=== PATIENT | male | born 1930 | race Caucasian/White ===

== ENCOUNTER → 2016-12-09 | Outpatient (CLI) | payer MEDICARE ==
[~2016-12-09] MED LIST: ALBU8I INH; ASPI325T PO; CARB25TA PO; CLON0.5T PO; FLUT50SP EACH NARE; IMOD2TAB PO; LEVA500T PO; LOVA40TA PO; METO50TA PO; NIFE1TAB85 PO; NITR0.4S SL; OMEP20TA39 PO; PACE200T4 PO; SERT25TA83 PO; TAMS0.4C67 PO; WARF5 PO; Z.0.OXYGENDME NC; [UNRECOGNIZED DRUG - OTHER] NEB
[2016-12-09 10:46] LABS: BLOOD GAS BASE EXCESS 0.9 mmol/L (-2-2); BLOOD GAS CARBOXYHEMOGLOBIN 1.5 % (0-4); BLOOD GAS HCO3 25 mmol/L (22-26); BLOOD GAS O2 HGB SATURATION 95 % (90-100); BLOOD GAS OXYGEN CONTENT 16.4 Vol % (12.0-20.0); BLOOD GAS PCO2 41 mmHg (38-42); BLOOD GAS PO2 90 mmHg (61-120); BLOOD GAS TOTAL HGB 12.3 G/DL (12.0-16.0); CRITICAL VALUE NO; DRAW SITE RT RADIAL; NUMBER OF ARTERIAL PUNCTURES 1; STAT NO; TEMP CORR TO 98.6; ULNAR PULSE PRESENT
--- NOTE | 2016-12-11 08:52 | RSPPFT ---
DATE OF PROCEDURE: 12/09/16 COMMENTS: Spirometry with FVC of 3.9 predicted 3.2, FEV1 of 2.4 predicted 2.5, FEV1/FVC ratio 63% predicted 73%. Post-bronchodilator FEV1 increases to 3.0. Lung volumes are essentially within predicted range except for the increased ERV, FRC and RV/TLC ratio. DLCO is 60% of predicted and 75% when corrected for alveolar volume. IMPRESSION: On the basis of the above, patient has an obstructive lung defect with responsiveness to acutely inhaled bronchodilator.
== END ==
LOC: HRSP 09:35
PROVIDERS: ATTEND Internal Medicine Pulmonary Disease
DX: R04.2 Hemoptysis (principal)
CPT/HCPCS: 36600; 82805; 94060; 94620; 94726; 94729

== ENCOUNTER → 2017-06-02 | Day surgery (SDC) | payer MEDICARE ==
[~2017-06-02] VITALS: Ht 172.7 cm; Wt 72.5 kg
[~2017-06-02] MED LIST changes: -ALBU8I INH; +ALBUAER3 INH; +AMIO200T PO; +ASPI-183 PO; +ASPI1TAB57 PO; -ASPI325T PO; -CARB25TA PO; +CARB25TA9 PO; +CHLORHEXIDINE GLUCONATE 2 % 1 PACK (2 CLOTHS) TOPICAL PRN; +DONE10TA7 PO; +EPINEPHrine HCL (1:1000) 30 MG/30 ML VIAL ONE; +FLUT1SPR16 NASAL; -FLUT50SP EACH NARE; +GLYC1TAB17 PO; -IMOD2TAB PO; +LACTATED RINGER'S 1000 ML IV PRN; -LEVA500T PO; +LIDOCAINE 1%/EPINEPHrine 1:100,000 SOLN 30 ML VIAL ONE; +LISI10TA3 PO; +LOPE-1 PO; +MEMA1TAB2 PO; +METOPROLOL TARTRATE 25 MG TAB PO PRN; +MINERAL OIL 10 ML VIAL ONE; -NIFE1TAB85 PO; +NIFE20 PO; -NITR0.4S SL; +NITR1SUB3 SL; -OMEP20TA39 PO; +OMEP20TA93 PO; +OMEP40CA2 PO; +OXYC1TAB35 PO; -PACE200T4 PO; +POVIDONE IODINE 5% (ANTISEPSIS KIT) 4 APPLICATIONS EACH NARE PRN; +SERT-129 PO; +SERT-132 PO; -SERT25TA83 PO; +SODIUM BICARBONATE 8.4% INJ 0 ML ONE; +SODIUM CHLORID 0.9% 500 ML IV PRN; +TAMS0.4C4 PO; -TAMS0.4C67 PO; +WARF-23 PO; -WARF5 PO; +ceFAZolin 2 GM PREMIX 50 ML IV SCH; +oxyCODONE/ACETAMINOPHEN 5 MG/325 MG TAB ONE
[2017-06-02 10:17] VITALS: PULSE 64
--- NOTE | 2017-06-02 10:30 | PD.OP ---
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 Patient and agreed to go ahead with surgery. Preoperative markings done in holding Patient brought to OR, anesthesia started, time out completed prep drape done All areas injected with dilute mix of lidocaine with epi and saline 1:1 mix First two specimens excised and suture marked superior, sent for frozen section Third lesion on the cheek was for permanent pathology only as it was too large for frozen section. Hemostasis completed with low power bovie. Full thickness skin graft harvested from left neck Graft sutured in place over the right brow, left uatsdin. Left cheek closed directly internal sutures only Donor site closed directly, internal sutures only Tie over dressings to the skin grafted sites, dermabond to the left cheek, and neck Frozen sections report - BCC with clear margins on both specimens. Patient stable, minimal blood loss less than 15 cc No complications, Edison Lopez MD Jun 02, 2017 10:30
[2017-06-02 11:00] VITALS: PULSE 60; TEMP 97.7
[2017-06-02 11:40] VITALS: BP 172/86; PULSE 63; RESP 14; O2SAT 97
== END | disposition home or self-care (01) ==
LOC: PHSDC 06:08
PROVIDERS: ATTEND Plastic Surgery
DX: C44.112 Basal cell carcinoma of skin of right eyelid, including canthus (principal); C44.119 Basal cell carcinoma of skin of left eyelid, including canthus; C44.319 Basal cell carcinoma of skin of other parts of face; I10 Essential (primary) hypertension
CPT/HCPCS: 00300; 11643; 11644; 15240; 15260; 88305; 88331; J0690; J3010; J7120; J0171

== ENCOUNTER 2018-02-19 10:48 | Inpatient (IN) ==
[2018-02-19 11:33] LABS: Baso % (Auto) 0.3 % (0.0-2.0); Eos # (Auto) 0.1 th/mm3 (0.0-0.4); Eos % (Auto) 0.6 % (0.0-4.0); Hematocrit 39.8 % (39.0-51.0); Hemoglobin 13.3 gm/dL (13.0-17.0); Lymph # (Auto) 1.6 th/mm3 (1.0-4.8); Lymph % (Auto) 17.6 % (9.0-44.0); Mean Corpuscular HGB Conc 33.3 % (32.0-36.0); Mean Corpuscular Hemoglobin 31.6 pg (27.0-34.0); Mean Platelet Volume 8.5 fL (7.0-11.0); Mono # (Auto) 0.6 th/mm3 (0.0-0.9); Neut # (Auto) 6.6 th/mm3 (1.8-7.7); Neut % (Auto) 74.5 % (16.0-70.0); Platelet Count 122 th/mm3 (150-450); Red Blood Count 4.19 mil/mm3 (4.50-5.90); White Blood Count 8.9 th/mm3 (4.0-11.0)
--- NOTE | 2018-02-19 11:34 | CT ---
EXAM DATE: 02/19/2018 11:25 AM EST AGE/SEX: 87 years / Male INDICATIONS: Seizure. CLINICAL DATA: This is the patient's initial encounter. Patient reports that signs and symptoms have been present for 1 day and indicates a pain score of 0/10. MEDICAL/SURGICAL HISTORY: Dementia. Parkinson's disease. None. RADIATION DOSE: 39.18 CTDI (mGy) COMPARISON: No prior exams available for comparison. TECHNIQUE: CT of the head without contrast. Using automated exposure control and adjustment of the mA and/or kV according to patient size, radiation dose was kept as low as reasonably achievable to ob tain optimal diagnostic quality images. DICOM format image data is available electronically for revi ew and comparison. FINDINGS: Cerebrum: There are 2 focal areas of hemorrhage seen in the left cerebral hemisphere measuring 3.3 c m in the superior posterior left frontal lobe and 4.5 cm in the posterior left temporal occipital reg ion. There is surrounding edema seen in these regions. There are some punctate hemorrhage seen at the superior left frontoparietal region. There is a 0.6 mm of [id number] midline shift. The basal cis terns are open. There is mass effect on the posterior aspect of the left lateral ventricle. The ventr icles otherwise appear grossly normal. There is some overall widening of the sulci. Posterior Fossa: The cerebellum and brainstem are intact. The 4th ventricle is midline. The cerebe llopontine angle is unremarkable. Extracranial: The visualized portion of the orbits is intact. There is ethmoid and maxillary sinus d isease with maxillary sinus disease being more prominent on the right. This increased density in the left nasal cavity likely from enlarged turbinates. Skull: The calvaria is intact. No evidence of skull fracture. CONCLUSION: 1. 2 focal areas of hemorrhage in the left cerebral hemisphere in the left frontal and left temporal parietal regions with surrounding mass effect. 2. Underlying atrophy. 3. Sinus disease. This information was relayed by telephone to . Electronically signed by: Joseph Arthur MD 02/19/2018 11:33 AM EST
[2018-02-19] MEDS ORDERED: levETIRAcetam 1000mg/100mL Inj 100 ML IV.SIG ONE (11:38)
--- NOTE | 2018-02-19 11:44 | ED ---
HPI General Chief complaint: Seizure Stated complaint: Poss Seizure Time Seen by Provider: 02/19/18 11:00 Source: patient Mode of arrival: ambulatory Limitations: no limitations History of Present Illness HPI narrative: 87yo M with PMH of Lewy body Parkinson, afib on coumadin, dementia presents to the ED for evaluation after a witnessed seizure today. As per EVAC, pt was in a wheelchair and his home health aid witnessed a generalized tonic clonic seizure that lasted a few seconds. Said pt never fell and she lowered him down from the wheelchair after. said she noticed that he was more confused last night and was pacing around the room but denies any fall yesterday. Said he saw his neurologist Dr. Keys yesterday and he noticed a decline in him. Related Data Home Medications Medication Instructions Recorded Confirmed carbidopa-levodopa 1 tab PO TID 01/21/18 02/19/18 clonazepam 0.5 mg PO HS PRN 01/21/18 02/19/18 glycopyrrolate 2 tab PO BID 01/21/18 02/19/18 memantine 10 mg PO DAILY 01/21/18 02/19/18 omeprazole 20 mg PO DAILY 01/21/18 02/19/18 quetiapine 25 mg PO HS 01/21/18 02/19/18 sertraline 100 mg PO DAILY 01/21/18 02/19/18 tamsulosin 0.4 mg PO DAILY 01/21/18 02/19/18 Previous Rx's Medication Instructions Recorded haloperidol lactate [Haldol] 2 mg IV.PUSH Q4H PRN ml 02/20/18 ipratropium-albuterol 1 amp NEB Q2HR NEB PRN ml 02/20/18 ondansetron HCl (PF) 4 mg IV.PUSH Q6H PRN ml 02/20/18 Allergies Allergy/AdvReac Type Severity Reaction Status Date / Time No Known Allergies Allergy Uncoded 04/25/13 03:26 Review of Systems ROS: all other systems reviewed are negative [facility] Family History Family History Mother Heart disease Father Emphysema of lung Social History Social History Substance History: No History of Abuse Second Hand Smoke Exposure: No Smoking Status: Former smoker How Often Do You Have a Drink Containing Alcohol: Unable to Obtain (History of daily alcohol consumption/vodka) Recent Travel in [facility] within the Last 8 Weeks: No Recent Out of Country Travel within the Last 8 Weeks: No Exam Narrative Exam Narrative: GENERAL: 87yo M not in distress. SKIN: Focused skin assessment warm/dry. HEAD: Atraumatic. Normocephalic. EYES: Pupils equal and round. No scleral icterus. No injection or drainage. ENT: No nasal bleeding or discharge. Mucous membranes pink and moist. NECK: Trachea midline. No JVD. CARDIOVASCULAR: Regular rate and rhythm. No murmur appreciated. RESPIRATORY: No accessory muscle use. Clear to auscultation. Breath sounds equal bilaterally. GASTROINTESTINAL: Abdomen soft, non-tender, nondistended. MUSCULOSKELETAL: No obvious deformities. No clubbing. No cyanosis. No edema. NEUROLOGICAL: Awake and alert. Has a left sided gaze. Follows commands but mumbles and nods and shakes head. RUE is weaker than LUE. Pt moves bilateral toes but unable to lift either leg. Unknown baseline. Course Initial Documented Vital Signs Pulse Rate 62 02/19/18 10:56 Respiratory Rate 18 02/19/18 10:56 Blood Pressure 184/84 H 02/19/18 10:56 Pulse Oximetry 96 02/19/18 10:56 Last Documented Vital Signs Temperature 98.7 F 02/20/18 20:00 Pulse Rate 99 H 02/21/18 12:00 Respiratory Rate 26 H 02/21/18 12:00 Blood Pressure 176/93 H 02/21/18 10:00 Pulse Oximetry 96 02/21/18 12:00 Critical Care Time Critical Care Time: Yes Total Critical Care Time: 50 Attestation: Aggregate critical care time was 50 minutes. Time to perform other separately billable procedures was not included in the critical care time. My time did not include minutes spent treating any other patients simultaneously or on activities that did not directly contribute to the patient's treatment. The services I provided to this patient were to treat and/or prevent clinically significant deterioration that could result in: cardiovascular collapse or . I provided critical care services requiring my management, as noted below: Chart data review, documentation time, medication orders and management, vital sign assessments/reviewing monitor data, ordering and reviewing lab tests, ordering and interpreting/reviewing x-rays and diagnostic studies, care of the patient and discussion of the patient with the admitting physicians. Medical Decision Making MDM Narrative Medical decision making narrative: 87yo M here for evaluation of seizure. Denies any trauma. Pt has been more confused since last night. CT brain showed 2 focal areas of hemorrhage in the left cerebral hemisphere in the left frontal and left temporal parietal regions with surrounding mass effect. Underlying atrophy. I discussed with neurosurgeon Dr. Warren and he came to evaluate the patient. Said it is nonsurgical but since it is 2 focal areas, would consult neurology. Labs reviewed, no leukocytosis. H/H normal. BMP unremarkable. CXR negative. INR therapeutic at 2.5. However, pt has an acute intracranial hemorrhage so ordered Vitamin K and K Centra. Pt is also on nicardipine drip since BP was elevated at 184/84. Pt is a DNR. Discussed with Dr. Mullen and accepted to his service. Medical Screen Exam Complete: Yes Emergency Medical Condition: Yes Differential Diagnosis Differential Diagnosis: ICH vs. CVA Lab Data Result diagrams: 02/20/18 05:29 02/20/18 05:29 Lab Results 02/19/18 02/19/18 02/19/18 Range/Units 11:10 11:10 11:10 WBC 8.9 (4.0-11.0) th/mm3 RBC 4.19 L (4.50-5.90) mil/mm3 Hgb 13.3 (13.0-17.0) gm/dL Hct 39.8 (39.0-51.0) % MCV 95.0 (80.0-100.0) fL MCH 31.6 (27.0-34.0) pg MCHC 33.3 (32.0-36.0) % RDW 14.0 (11.6-17.2) % Plt Count 122 L (150-450) th/mm3 MPV 8.5 (7.0-11.0) fL Neut % (Auto) 74.5 H (16.0-70.0) % Lymph % (Auto) 17.6 (9.0-44.0) % Price % (Auto) 7.0 (0.0-8.0) % Eos % (Auto) 0.6 (0.0-4.0) % Baso % (Auto) 0.3 (0.0-2.0) % Neut # (Auto) 6.6 (1.8-7.7) th/mm3 Lymph # (Auto) 1.6 (1.0-4.8) th/mm3 Price # (Auto) 0.6 (0.0-0.9) th/mm3 Eos # (Auto) 0.1 (0.0-0.4) th/mm3 Baso # (Auto) 0.0 (0.0-0.2) th/mm3 WBC Differential . Differential Comment Auto diff final PT 25.0 H (9.8-11.6) sec INR 2.5 Ratio APTT 32.4 H (23.4-31.7) sec Sodium 143 (136-145) meq/L Potassium 3.5 (3.5-5.1) meq/L Chloride 108 H (98-107) meq/L Carbon Dioxide 27.8 (21.0-32.0) meq/L Anion Gap 7 (5-15) meq/L BUN 13 (7-18) mg/dL Creatinine 0.90 (0.60-1.30) mg/dL Estimated GFR 80 L (>89) mL/min Random Glucose 112 H (74-106) mg/dL Calcium 7.7 L (8.5-10.1) mg/dL Magnesium 2.2 (1.5-2.5) mg/dL Total Bilirubin 0.8 (0.2-1.0) mg/dL AST 15 (15-37) U/L ALT 9 L (12-78) U/L Alkaline Phosphatase 97 (45-117) U/L Total Protein 6.5 (6.4-8.2) g/dL Albumin 3.4 (3.4-5.0) g/dL Urine Color (Yellw/Straw) Urine Clarity (Clear) Urine pH (5.0-8.5) Ur Specific Bellflower (1.002-1.035) Urine Protein (Neg-Trace) mg/dL Urine Glucose (UA) (Negative) mg/dL Urine Ketones (Negative) mg/dL Urine Occult Blood (Negative) Urine Nitrate (Negative) Urine Bilirubin (Negative) Urine Urobilinogen (Less than 2) mg/dL Ur Leukocyte Esterase (Negative) Urine RBC (0-3) /hpf Urine WBC (0-5) /hpf Urine Bacteria (None) /hpf Urine Mucus (Occasional) /lpf Micro UA Comment Ur Microscopic Review Urine Culture Comments Nasal Screen MRSA (PCR) (Negative) Blood Type Blood Type Recheck Blood Bank Comment 02/19/18 02/19/18 02/19/18 Range/Units 12:55 13:54 14:44 WBC (4.0-11.0) th/mm3 RBC (4.50-5.90) mil/mm3 Hgb (13.0-17.0) gm/dL Hct (39.0-51.0) % MCV (80.0-100.0) fL MCH (27.0-34.0) pg MCHC (32.0-36.0) % RDW (11.6-17.2) % Plt Count (150-450) th/mm3 MPV (7.0-11.0) fL Neut % (Auto) (16.0-70.0) % Lymph % (Auto) (9.0-44.0) % Price % (Auto) (0.0-8.0) % Eos % (Auto) (0.0-4.0) % Baso % (Auto) (0.0-2.0) % Neut # (Auto) (1.8-7.7) th/mm3 Lymph # (Auto) (1.0-4.8) th/mm3 Price # (Auto) (0.0-0.9) th/mm3 Eos # (Auto) (0.0-0.4) th/mm3 Baso # (Auto) (0.0-0.2) th/mm3 WBC Differential Differential Comment PT (9.8-11.6) sec INR Ratio APTT (23.4-31.7) sec Sodium (136-145) meq/L Potassium (3.5-5.1) meq/L Chloride (98-107) meq/L Carbon Dioxide (21.0-32.0) meq/L Anion Gap (5-15) meq/L BUN (7-18) mg/dL Creatinine (0.60-1.30) mg/dL Estimated GFR (>89) mL/min Random Glucose (74-106) mg/dL Calcium (8.5-10.1) mg/dL Magnesium (1.5-2.5) mg/dL Total Bilirubin (0.2-1.0) mg/dL AST (15-37) U/L ALT (12-78) U/L Alkaline Phosphatase (45-117) U/L Total Protein (6.4-8.2) g/dL Albumin (3.4-5.0) g/dL Urine Color Yellow (Yellw/Straw) Urine Clarity Clear (Clear) Urine pH 7.0 (5.0-8.5) Ur Specific Bellflower 1.012 (1.002-1.035) Urine Protein Negative (Neg-Trace) mg/dL Urine Glucose (UA) Negative (Negative) mg/dL Urine Ketones Negative (Negative) mg/dL Urine Occult Blood Negative (Negative) Urine Nitrate Negative (Negative) Urine Bilirubin Negative (Negative) Urine Urobilinogen 2.0 H (Less than 2) mg/dL Ur Leukocyte Esterase Negative (Negative) Urine RBC 2 (0-3) /hpf Urine WBC 1 (0-5) /hpf Urine Bacteria Rare H (None) /hpf Urine Mucus Few H (Occasional) /lpf Micro UA Comment Cath-culture ind Ur Microscopic Review Not Reportable Urine Culture Comments Cath-cult indicated Nasal Screen MRSA (PCR) Not detected (Negative) Blood Type A Positive Blood Type Recheck Required Blood Bank Comment 02/20/18 02/20/18 02/20/18 Range/Units 05:29 05:29 05:29 WBC 11.5 H (4.0-11.0) th/mm3 RBC 4.15 L (4.50-5.90) mil/mm3 Hgb 13.0 (13.0-17.0) gm/dL Hct 38.5 L (39.0-51.0) % MCV 93.0 (80.0-100.0) fL MCH 31.5 (27.0-34.0) pg MCHC 33.8 (32.0-36.0) % RDW 13.8 (11.6-17.2) % Plt Count 131 L (150-450) th/mm3 MPV 8.9 (7.0-11.0) fL Neut % (Auto) 76.2 H (16.0-70.0) % Lymph % (Auto) 15.3 (9.0-44.0) % Price % (Auto) 8.3 H (0.0-8.0) % Eos % (Auto) 0.0 (0.0-4.0) % Baso % (Auto) 0.2 (0.0-2.0) % Neut # (Auto) 8.7 H (1.8-7.7) th/mm3 Lymph # (Auto) 1.8 (1.0-4.8) th/mm3 Price # (Auto) 1.0 H (0.0-0.9) th/mm3 Eos # (Auto) 0.0 (0.0-0.4) th/mm3 Baso # (Auto) 0.0 (0.0-0.2) th/mm3 WBC Differential . Differential Comment Auto diff final PT 11.4 D (9.8-11.6) sec INR 1.1 Ratio APTT (23.4-31.7) sec Sodium 142 (136-145) meq/L Potassium 3.3 L (3.5-5.1) meq/L Chloride 110 H (98-107) meq/L Carbon Dioxide 22.8 (21.0-32.0) meq/L Anion Gap 9 (5-15) meq/L BUN 15 (7-18) mg/dL Creatinine 0.78 (0.60-1.30) mg/dL Estimated GFR Greater than 89 (>89) mL/min Random Glucose 95 (74-106) mg/dL Calcium 7.9 L (8.5-10.1) mg/dL Magnesium (1.5-2.5) mg/dL Total Bilirubin 1.5 H (0.2-1.0) mg/dL AST 15 (15-37) U/L ALT 15 (12-78) U/L Alkaline Phosphatase 102 (45-117) U/L Total Protein 6.4 (6.4-8.2) g/dL Albumin 3.5 (3.4-5.0) g/dL Urine Color (Yellw/Straw) Urine Clarity (Clear) Urine pH (5.0-8.5) Ur Specific [place]flower (1.002-1.035) Urine Protein (Neg-Trace) mg/dL Urine Glucose (UA) (Negative) mg/dL Urine Ketones (Negative) mg/dL Urine Occult Blood (Negative) Urine Nitrate (Negative) Urine Bilirubin (Negative) Urine Urobilinogen (Less than 2) mg/dL Ur Leukocyte Esterase (Negative) Urine RBC (0-3) /hpf Urine WBC (0-5) /hpf Urine Bacteria (None) /hpf Urine Mucus (Occasional) /lpf Micro UA Comment Ur Microscopic Review Urine Culture Comments Nasal Screen MRSA (PCR) (Negative) Blood Type Blood Type Recheck Blood Bank Comment Imaging Data Radiologist's impression: Head CT 02/19/18 11:01 CONCLUSION: 1. 2 focal areas of hemorrhage in the left cerebral hemisphere in the left frontal and left temporal parietal regions with surrounding mass effect. 2. Underlying atrophy. 3. Sinus disease. This information was relayed by telephone to . ECG Data EKG Prior to Arrival: No Attestation: I personally reviewed and interpreted this ECG as follows: Interpretation: NSR 60bpm. LAD> Mild ST depression V5, V6. No significant ST elevation. Discharge Plan Discharge Disposition Patient Disposition: 30 Still Patient Discharge Condition Condition: Fair Discharge Order Discharge Orders: Discharge Order (Routine); Ordered 02/20/18 Ordered By: Simon Pate Discharge Details Anticipated Discharge Date: 02/21/18 Diagnosis: Intracranial hemorrhage Physicians Team ED Provider: Karey Belcher Primary Care Provider: Regi Ng Attending Provider: J Luis Mullen Other Providers: Waleska Villeda ; Mayur Warren ; Tino Bustillos Status ED Status: Left Department Discharge Information Discharge Date/Time: 02/19/18 13:56
[2018-02-19 11:56] LABS: Alanine Aminotransferase 9 U/L (12-78); Albumin 3.4 g/dL (3.4-5.0); Anion Gap 7 meq/L (5-15); Aspartate Aminotransferase 15 U/L (15-37); Blood Urea Nitrogen 13 mg/dL (7-18); Calcium 7.7 mg/dL (8.5-10.1); Carbon Dioxide 27.8 meq/L (21.0-32.0); Chloride 108 meq/L (98-107); Glomerular Filtration Rate 80 mL/min (>89); Glucose,Random 112 mg/dL (74-106); Magnesium 2.2 mg/dL (1.5-2.5); Potassium 3.5 meq/L (3.5-5.1); Sodium 143 meq/L (136-145)
[2018-02-19] MEDS: niCARdipine Inj 25 MG in Sodium Chlor 0.9% Inj 240 ML IV.CONT PRN ×3 (11:56→23:21)
[2018-02-19 11:58] LABS: Alkaline Phosphatase 97 U/L (45-117); Total Protein 6.5 g/dL (6.4-8.2)
[2018-02-19 12:08] LABS: Activated Partial Thrombo Time 32.4 sec (23.4-31.7); INR 2.5 Ratio
[2018-02-19] MEDS ORDERED: Phytonadione Inj 10 MG in Sodium Chlor 0.9% Inj 50 ML IV.SIG ONE (12:43)
[2018-02-19] MEDS ORDERED: Prothrombin Complex Conc Inj 2,000 UNIT in Syringe/Bag 1 EACH IV.SIG ONE (12:43)
[2018-02-19] MEDS ORDERED: Bisacodyl 10 MG Supp RECTAL PRN (13:00)
--- NOTE | 2018-02-19 13:15 | P.CONNS ---
History of Present Illness Primary Care Provider: Regi Ng MD Chief Complaint: confusion History of Present Illness: 87yoM DNR/DNI with Parkinson's Disease (patient of Dr. Spence), on coumadin for a fib, found to be confused and aphasic today by and caregiver. Imaging shows left frontal and parietal Intraparenchymal hemorrhages, independent and not confluent. INR 2.5, no history of trauma. No intercurrent illness or history of fever. Patient is aphasic but follows commands x 4, can agree to his name but not name or repeat it, with a left gaze preference. [facility] - History History Provided By: Patient - Medical History Medical History: Medical History (Last Updated 02/19/18 @ 12:12 by Aakash Madrid RN) Atrial fibrillation Dementia Parkinson disease - Surgical History Surgical History: Surgical History (Last Updated 02/19/18 @ 12:12 by Aakash Madrid RN) H/O heart artery stent Hx of cholecystectomy - Tobacco History Second Hand Smoke Exposure: No Smoking Status: Former smoker - Alcohol History How Often Do You Have a Drink Containing Alcohol: Never - Substance Use History Substance History: No History of Abuse - Travel History Recent Travel in the [place] Within the Last 8 Weeks: No Recent Travel Out of the Country Within the Last 8 Weeks: No - Immunization History Tetanus Immunization: <5 Years Medications and Allergies Active Medications: Active Medications Al Hydroxide/Mg Hydroxide (Milk Of Madi Yusuf) 30 ml PO Q12H PRN PRN Reason: Mild Constipation Albuterol (Duoneb Neb (Prn)) 1 ampul NEB Q2HR NEB PRN PRN Reason: WHEEZING Bisacodyl (Dulcolax Supp) 10 mg RECTAL DAILY PRN PRN Reason: SEVERE CONSITIPATION Chlorhexidine Gluconate (Chlorhexidine 2% Cloth) 3 pack TOPICAL DAILY@0400 EVARISTO Stop: 02/25/18 03:59 Chlorhexidine Gluconate (Chlorhexidine 2% Cloth) 3 pack TOPICAL DAILY@0400 PRN PRN Reason: Extra cloth needed Stop: 02/25/18 03:59 Famotidine (Pepcid Pf Inj) 20 mg IV.PUSH Q12HR EVARISTO Nicardipine HCl 25 mg/ Sodium (Chloride) 250 mls @ 50 mls/hr IV.CONT TITRATE PRN; Protocol PRN Reason: Per Protocol Last Titration: 02/19/18 12:25 Dose: 5 mg/hr, 50 mls/hr Phytonadione 10 mg/ Sodium (Chloride) 51 mls @ 102 mls/hr IV.SIG ONCE ONE Stop: 02/19/18 13:12 Sodium Chloride (Ns Inj) 1,000 mls @ 84 mls/hr IV.CONT .[id number] EVARISTO Ondansetron HCl (Zofran Inj) 4 mg IV.PUSH Q6H PRN PRN Reason: NAUSEA OR VOMITING Sennosides (Senokot) 17.2 mg PO Q12H PRN PRN Reason: Moderate Constipation Sodium Chloride (Ns Flush) 2 ml IV.FLUSH BID EVARISTO Sodium Chloride (Ns Flush) 2 ml IV.FLUSH PRN PRN PRN Reason: FLUSH AFTER USING IV ACCESS Allergies Allergy/AdvReac Type Severity Reaction Status Date / Time No Known Allergies Allergy Uncoded 04/25/13 03:26 Home Medications Medication Instructions Recorded Confirmed Type aspirin 81 mg PO DAILY 01/21/18 01/21/18 History carbidopa-levodopa 1 tab PO TID 01/21/18 01/21/18 History clonazepam 0.5 mg PO HS PRN 01/21/18 01/21/18 History donepezil 10 mg PO DAILY 01/21/18 01/21/18 History glycopyrrolate 2 tab PO BID 01/21/18 01/21/18 History lisinopril 10 mg PO BID 01/21/18 01/21/18 History lovastatin 40 mg PO DAILY 01/21/18 01/21/18 History memantine 10 mg PO BID 01/21/18 01/21/18 History metoprolol tartrate 25 mg PO BID 01/21/18 01/21/18 History omeprazole 20 mg PO DAILY 01/21/18 01/21/18 History quetiapine 25 mg PO HS 01/21/18 01/21/18 History sertraline 100 mg PO DAILY 01/21/18 01/21/18 History tamsulosin 0.4 mg PO DAILY 01/21/18 01/21/18 History warfarin See Label Instructions .ROUTE 01/21/18 01/21/18 History .COMPLEX warfarin See Label Instructions .ROUTE 01/21/18 01/21/18 History .COMPLEX Exam Vital signs: Vital Signs 02/19/18 10:56 02/19/18 11:03 02/19/18 12:00 Temperature 98.2 F Pulse Rate 62 62 Respiratory Rate 18 16 Blood Pressure 184/84 H 175/77 H Pulse Oximetry 96 96 02/19/18 12:01 02/19/18 12:09 Temperature Pulse Rate 63 Respiratory Rate 16 19 Blood Pressure 129/58 L Pulse Oximetry 97 Intake & Output 02/18/18 02/19/18 02/19/18 18:59 06:59 18:59 Intake Total 100 / 100 Balance 100 / 100 Weight 83.915 kg Intake: IV 100 / 100 Keppra 1000 mg/100 mL Premix 100 / 100 100 ML @ 400 mls/hr IV.SIG ONCE ONE Rx#:[id number] Narrative: Left gaze preference, perrl Answers yes to his name but cannot produce language (name or repeat) Follows commands x 4 Neglect on the right but able to wiggle both thumbs Results - Laboratory Findings CBC and BMP: 02/19/18 11:10 02/19/18 11:10 Abnormal lab findings: Abnormal Labs 02/19/18 02/19/18 02/19/18 11:10 11:10 11:10 RBC 4.19 L Plt Count 122 L Neut % (Auto) 74.5 H PT 25.0 H APTT 32.4 H Chloride 108 H Estimated GFR 80 L Random Glucose 112 H Calcium 7.7 L ALT 9 L Assessment and Plan - Plan 87yoM with 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 Defer further management to neurology and ISC re: etiology (?embolic w/ afib, echo?). Reverse INR (consider Kcentra, Vit K) Should patient decline, patient's family is not interested in aggressive surgical intervention.
[2018-02-19 13:28] LABS: Bacteria,Urine Rare /hpf; Bilirubin,Urine Negative (Negative); Clarity,Urine Clear (Clear); Color,Urine Yellow (Yellw/Straw); Glucose,Urine (UA) Negative (Negative); Leukocyte Esterase,Urine Negative (Negative); Mucus,Urine Few /lpf (Occasional); Nitrite,Urine Negative (Negative); Specific Gravity,Urine 1.012 (1.002-1.035)
--- NOTE | 2018-02-19 13:28 | P.HPCC ---
History of Present Illness Service: critical care medicine Primary Care Physician: Regi Ng MD Chief Complaint: Altered mental status History of Present Illness: 87-year-old male with a medical history significant for Lewy body dementia/ Parkinson's, A. fib on Coumadin who reportedly developed worsening neurologic status since last night and this morning could not speak and could not feed himself and developed a loss of speech with subsequent question of witnessed seizure by his caregiver while in a wheelchair. He never fell and hit his head per family. Patient was brought to the ER and a head CT revealed 2 areas of intraparenchymal hemorrhage in the left cerebral hemisphere. Patient was evaluated by neurology Dr. Warren who did not feel patient needed any neurosurgical intervention. He was also hypertensive on arrival and was started on a Cardene drip. Patient was accepted for admission by critical care medicine service. When I evaluated the patient in the ER he was laying in the ER stretcher appeared comfortable in no acute distress. He was actually following commands moving both sides of the slightly less on the right. He was nonverbal and could not speak. History was obtained by reviewing records and discussion with the ER physician, neurosurgery as well as patient's and caregiver at bedside. Patient had been started on a nicardipine infusion for hypertension. Patient's does not want aggressive measures including intubation or CPR and wishes to keep him as a DNR status however does want to continue medical care including managing blood pressure and admitting to the ICU at this time. Inpatient Certification: I certify that the inpatient services were ordered in accordance with Medicare regulations governing the order. This includes certification that hospital inpatient services are reasonable and necessary and in the case of services not specified as inpatient-only under 42 CFR 419.22(n), that they are appropriately provided as inpatient services in accordance to with the 2-midnight benchmark under 43 CFR 412.3(e) Estimated Total Length of Stay (Days): 5 Plans for Post Hospital Care: Not yet determined Review of Systems unobtainable due to mental status PMFSH - History History Provided By: Patient - Medical History Medical History: Medical History (Last Updated 02/19/18 @ 12:12 by Aakash Madrid RN) Atrial fibrillation Dementia Parkinson disease - Surgical History Surgical History: Surgical History (Last Updated 02/19/18 @ 12:12 by Aakash Madrid RN) H/O heart artery stent Hx of cholecystectomy - Tobacco History Second Hand Smoke Exposure: No Smoking Status: Former smoker - Alcohol History How Often Do You Have a Drink Containing Alcohol: Never - Substance Use History Substance History: No History of Abuse - Travel History Recent Travel in the [place] Within the Last 8 Weeks: No Recent Travel Out of the Country Within the Last 8 Weeks: No - Immunization History Tetanus Immunization: <5 Years Medications and Allergies Active Medications: Active Medications Al Hydroxide/Mg Hydroxide (Milk Of Magnlauren Liq) 30 ml PO Q12H PRN PRN Reason: Mild Constipation Albuterol (Duoneb Neb (Prn)) 1 ampul NEB Q2HR NEB PRN PRN Reason: WHEEZING Bisacodyl (Dulcolax Supp) 10 mg RECTAL DAILY PRN PRN Reason: SEVERE CONSITIPATION Chlorhexidine Gluconate (Chlorhexidine 2% Cloth) 3 pack TOPICAL DAILY@0400 EVARISTO Stop: 02/25/18 03:59 Chlorhexidine Gluconate (Chlorhexidine 2% Cloth) 3 pack TOPICAL DAILY@0400 PRN PRN Reason: Extra cloth needed Stop: 02/25/18 03:59 Famotidine (Pepcid Pf Inj) 20 mg IV.PUSH Q12HR EVARISTO Nicardipine HCl 25 mg/ Sodium (Chloride) 250 mls @ 50 mls/hr IV.CONT TITRATE PRN; Protocol PRN Reason: Per Protocol Last Titration: 02/19/18 12:25 Dose: 5 mg/hr, 50 mls/hr Sodium Chloride (Ns Inj) 1,000 mls @ 84 mls/hr IV.CONT .[id number] EVARISTO Ondansetron HCl (Zofran Inj) 4 mg IV.PUSH Q6H PRN PRN Reason: NAUSEA OR VOMITING Sennosides (Senokot) 17.2 mg PO Q12H PRN PRN Reason: Moderate Constipation Sodium Chloride (Ns Flush) 2 ml IV.FLUSH BID EVARISTO Sodium Chloride (Ns Flush) 2 ml IV.FLUSH PRN PRN PRN Reason: FLUSH AFTER USING IV ACCESS Allergies Allergy/AdvReac Type Severity Reaction Status Date / Time No Known Allergies Allergy Uncoded 04/25/13 03:26 Home Medications Medication Instructions Recorded Confirmed Type aspirin 81 mg PO DAILY 01/21/18 01/21/18 History carbidopa-levodopa 1 tab PO TID 01/21/18 01/21/18 History clonazepam 0.5 mg PO HS PRN 01/21/18 01/21/18 History donepezil 10 mg PO DAILY 01/21/18 01/21/18 History glycopyrrolate 2 tab PO BID 01/21/18 01/21/18 History lisinopril 10 mg PO BID 01/21/18 01/21/18 History lovastatin 40 mg PO DAILY 01/21/18 01/21/18 History memantine 10 mg PO BID 01/21/18 01/21/18 History metoprolol tartrate 25 mg PO BID 01/21/18 01/21/18 History omeprazole 20 mg PO DAILY 01/21/18 01/21/18 History quetiapine 25 mg PO HS 01/21/18 01/21/18 History sertraline 100 mg PO DAILY 01/21/18 01/21/18 History tamsulosin 0.4 mg PO DAILY 01/21/18 01/21/18 History warfarin See Label Instructions .ROUTE 01/21/18 01/21/18 History .COMPLEX warfarin See Label Instructions .ROUTE 01/21/18 01/21/18 History .COMPLEX Results - Labs CBC & Chem 7: 02/19/18 11:10 02/19/18 11:10 Labs: Short CBC 02/19/18 Range/Units 11:10 WBC 8.9 (4.0-11.0) th/mm3 Hgb 13.3 (13.0-17.0) gm/dL Hct 39.8 (39.0-51.0) % Plt Count 122 L (150-450) th/mm3 BMP 02/19/18 11:10 Sodium 143 Potassium 3.5 Chloride 108 H Carbon Dioxide 27.8 BUN 13 Creatinine 0.90 Calcium 7.7 L Liver Function 02/19/18 Range/Units 11:10 Total Bilirubin 0.8 (0.2-1.0) mg/dL AST 15 (15-37) U/L ALT 9 L (12-78) U/L Alkaline Phosphatase 97 (45-117) U/L Albumin 3.4 (3.4-5.0) g/dL - Imaging Impressions Head CT 02/19/18 11:01 CONCLUSION: 1. 2 focal areas of hemorrhage in the left cerebral hemisphere in the left frontal and left temporal parietal regions with surrounding mass effect. 2. Underlying atrophy. 3. Sinus disease. This information was relayed by telephone to . Exam Vital signs: Vital Signs 02/19/18 10:56 02/19/18 11:03 02/19/18 12:00 Temperature 98.2 F Pulse Rate 62 62 Respiratory Rate 18 16 Blood Pressure 184/84 H 175/77 H Pulse Oximetry 96 96 02/19/18 12:01 02/19/18 12:09 02/19/18 13:00 Temperature Pulse Rate 63 67 Respiratory Rate 16 19 19 Blood Pressure 129/58 L 123/61 Pulse Oximetry 97 97 Intake & Output 02/18/18 02/19/18 02/19/18 18:59 06:59 18:59 Intake Total 100 / 100 Balance 100 / 100 Weight 83.915 kg Intake: IV 100 / 100 Keppra 1000 mg/100 mL Premix 100 / 100 100 ML @ 400 mls/hr IV.SIG ONCE ONE Rx#:[id number] Narrative: HEENT/Neuro: No pallor or icterus, tongue moist, TIFFANY, Awake alert aphasic, moves all 4 extremities on command though slightly weaker on the right. Neck: No JVD Chest/pulmonary: CTA bilaterally Cardiovascular: S1-S2 regular no gallop or murmur GI/abdomen: Soft, nontender, bowel sounds present Extremities: Warm bilaterally, no edema Caprini VTE Risk Assessment Caprini VTE Risk Assessment: Moderate/High Risk (score >= 2) VTE Pharmacological Exception Reason: Intracranial lesions Caprini Risk Assessment Model: Point Value = 1 Point Value = 2 Point Value = 3 Point Value = 5 Age 41-60 Minor surgery BMI > 25 kg/m2 Swollen legs Varicose veins or History of unexplained or recurrent spontaneous Oral contraceptives or hormone replacement Sepsis (< 1 month) Serious lung disease, including pneumonia (< 1 month) Abnormal pulmonary function Acute myocardial infarction Congestive heart failure (< 1 month) History of inflammatory bowel disease Medical patient at bed rest Age 61-74 Arthroscopic surgery Major open surgery (> 45 min) Laparoscopic surgery (> 45 min) Malignancy Confined to bed (> 72 hours) Immobilizing plaster cast Central venous access Age >= 75 History of VTE Family history of VTE Factor V Leiden Prothrombin [id number] Lupus anticoagulant Anticardiolipin antibodies Elevated serum homocysteine Heparin-induced thrombocytopenia Other congenital or acquired thrombophilia Stroke (< 1 month) Elective arthroplasty Hip, pelvis, or leg fracture Acute spinal cord injury (< 1 month) Prophylaxis Regimen: Total Risk Factor Score Risk Level Prophylaxis Regimen 0-1 Low Early ambulation 2 Moderate Order ONE of the following: *Sequential Compression Device (SCD) *Heparin 5000 units SQ BID 3-4 Higher Order ONE of the following medications: *Heparin 5000 units SQ TID *Enoxaparin/Lovenox 40 mg SQ daily (WT < 150 kg, CrCl > 30 mL/min) *Enoxaparin/Lovenox 30 mg SQ daily (WT < 150 kg, CrCl > 10-29 mL/min) *Enoxaparin/Lovenox 30 mg SQ BID (WT < 150 kg, CrCl > 30 mL/min) AND/OR *Sequential Compression Device (SCD) 5 or more Highest Order ONE of the following medications: *Heparin 5000 units SQ TID (Preferred with Epidurals) *Enoxaparin/Lovenox 40 mg SQ daily (WT < 150 kg, CrCl > 30 mL/min) *Enoxaparin/Lovenox 30 mg SQ daily (WT < 150 kg, CrCl > 10-29 mL/min) *Enoxaparin/Lovenox 30 mg SQ BID (WT < 150 kg, CrCl > 30 mL/min) AND *Sequential Compression Device (SCD) Assessment and Plan - Assessment and Plan Plan: 87-year-old male with: Intracerebral hemorrhage Hypertensive emergency Jay body dementia Parkinson's disease Atrial fibrillation Coagulopathy secondary to Coumadin Plan: Neuro: Follow neuro checks. Patient has been evaluated by neurosurgery no surgical intervention indicated at this time. Family does not want any invasive procedures. Blood pressure control with Cardene GTT. Consult neurology Dr. Keys Cardiovascular: Cardene gtt. to keep SBP less than 140 mmHg. Hold Coumadin. Received vitamin K to reverse INR. Will give 2 units FFP. Pulmonary: Supplemental O2 as needed. Currently protecting airway. If neurologic status worsens patient's family does not want intubation. GI/liver: N.p.o. for now. Renal/: IV hydration, strict intake output, monitor and replete elect lites, follow BUN and creatinine. ID: No indication for antibiotics at this time. Heme: Follow CBC and coags. Received vitamin K earlier. Will order 2 units FFP to reverse Coumadin. Endocrine: Watch for hypoglycemia, SSI for glycemic control if needed Prophylaxis: Pepcid/SCDs. No heparin in view of ICH. Discussed with Dr. Warren as well as with patient's at bedside in detail. Patient will be a DNR status Consulted palliative care to assist with deciding goals of therapy. Discussed with palliative care team. Discussed with the ER physician Condition critical Time spent on critical care excluding procedures 60 minutes
[2018-02-19] MEDS ORDERED: Sodium Chlor 0.9% Inj 250 ML IV.SIG SCH (14:00)
[2018-02-19] MEDS: Sod Chloride 0.9% Inj 1,000 ML IV.CONT SCH (14:00)
--- NOTE | 2018-02-19 14:40 | P.CONPAL ---
Consult Service: Palliative Care Requesting Physician: J Luis Mullen Reason for Consult: a. To assist with evaluation and management of symptoms including: Altered mental status, at risk for pain, debility b. To assist medical decision maker(s) with: better understanding of current medical conditions; weighing benefits/burdens of medical treatment options; making medical treatment decisions. Primary Care Provider: Regi Ng MD History of Present Illness History of Present Illness: Mr. Suarez is a 87-year-old male with a past medical history significant for Lewy body Parkinson's disease/dementia, atrial fibrillation s/p ablation on Coumadin, chronic obstructive pulmonary disease, hypertension, congestive heart failure, coronary artery disease, benign prostate hypertrophy, lower back arthritis, skin cancer, gastroesophageal reflux disease and depression. Patient was brought to the emergency room by [facility] on 02/19/18 for further evaluation and treatment for altered mental status and aphasia as well as a witnessed generalized tonic-clonic seizure that lasted a few seconds by his private caregiver. Patient`s spouse stated that patient was more confused last night and was pacing around the room. Patient follows with neurologist Dr. Keys. ER course: * Vital signs: Temperature 98.2F, pulse 62, respirations 18, BP 184/84, O2 saturation 96%. * Laboratory workup revealed WBC 8.9, hemoglobin 13.3, hematocrit 39.8, platelet count 122, PT 25.0, INR 2.5, APTT 32.4, sodium 143, potassium 3.5, BUN/ creatinine 13/0.90, random glucose 112, calcium 7.7, AST 15, ALT 9, total protein 6.5, albumin 3.4 * CT head revealed 2 focal areas of hemorrhage in the left cerebellar hemisphere in the left frontal and left temporal parietal regions with surrounding mass-effect. Underlying atrophy and sinus disease. * Patient was started on a nicardipine infusion for hypertension. * Urinalysis negative for leukocyte esterase and nitrates * Neurosurgery Dr. Warren consulted for evaluation and management of patient with left frontal and parietal intra-parenchymal hemorrhages, recommended neurology consult, replacing INR with case central vitamin K. It is also noted that patient`s family is notified neurosurgeon that they are not interested in aggressive surgical intervention should patient decline. * Patient admitted for further evaluation and treatment under critical care management physicians Palliative care consulted to assist with symptom management and establishment of goals of medical treatment. Patient seen and examined in his room on [facility] in the presence of his and private caregiver. Patient is awake, aphasic and is able to follow simple commands. Patient has a left-sided gaze. Patient appears at this time not able to weigh burdens and benefits of treatments or have insight regarding his medical condition. Introduced palliative care and its role in symptom management and establishment of goals of medical treatment. Obtained psychosocial, past medical history and events leading to this hospitalization. According to patient spouse Mine Suarez-patient has advanced directives (DPOA including healthcare). Per spouse, patient named her as his healthcare surrogate and patient`s son Dev Suarez is the alternate healthcare surrogate. According to patient spouse, patient his showed a significant decline in the past 6 months, requiring hiring private caregivers to assist with his care 6 months ago. She explains that patient has been more confused to the point of calling 911 a couple of times in the past few months for no good reason. He has required constant supervision due to worsening confusion. Reddressed CODE STATUS, discussed CPR benefits, complications and limitations, patient spouse elected to not resuscitate, DO NOT INTUBATE. Patient spouse stated that she does not want patient to suffer and she understands that patient has a progressive disease and his recent hemorrhagic bleed will most likely compound to patient's deterioration. She also feels that if patient fails swallow evaluation, a nasogastric tube or PEG tube will most likely prolong his suffering though she feels that when she has to make a decision regarding that she would want to speak to patient's children first. Introduced hospice philosophy and benefits. Patient spouse interested in transitioning patient to comfort care only through hospice services. She would want to discuss with patient`s 3 children first to make sure that all family members are in agreement. She is amenable to an informative hospice consult. Case discussed with bedside RN and Dr. Arian Mullen. . Function/Cognitive Trajectory: Patient lives in a private home with his spouse. Patient has private caregivers daily for 5 hours/day. He requires constant supervision. Prior to incident just before hospitalization patient was able to ambulate with a cane, required assistance with bathing, was able to feed himself and continent of bowel and bladder. Patient was able to verbalize his needs thought he had intermittent episodes of confusion. Patient spouse also reported that patient has had a couple of falls in the past few months. The night prior to hospitalization patient has been more confused than usual and on 02/19/18 prior to hospitalization patient was not able to walk or stand by himself and was aphasic. Review of Systems Constitutional: Reports weakness, Reports weight loss Ears, Nose, Mouth, and Throat: Denies abnormal hearing, Denies difficulty swallowing Cardiovascular: Reports irregular heart rhythm, Denies foot swelling, Denies shortness of breath Respiratory: Denies cough, Denies shortness of breath Gastrointestinal: Denies abdominal pain, Denies difficulty swallowing, Denies incontinent of stools, Denies nausea, Denies vomiting Genitourinary: Reports painful urination (Spouse reported that patient complained of pain during urination on 02/18), Reports urinary hesitancy, Denies blood in urine Musculoskeletal: Reports decreased muscle mass Neurologic: Reports abnormal speech, Reports confusion, Reports frequent falls, Denies abnormal hearing Psychiatric: Reports anxiety, Reports confusion, Reports depression, Denies change in appetite Endocrine: Denies excessive sweating Hematologic/Lymphatic: Reports easy bleeding, Reports easy bruising (On Coumadin ) PMFSH - History History Provided By: Patient, Medical Record - Medical History Medical History: Medical History (Last Updated 02/19/18 @ 14:52 by Vianca Alejandro) Arthritis Atrial fibrillation Benign prostatic hyperplasia COPD (chronic obstructive pulmonary disease) Congestive heart failure Coronary artery disease Dementia Depression Gastroesophageal reflux disease Hiatal hernia Hypertension Parkinson disease Skin cancer - Surgical History Surgical History: Surgical History (Last Updated 02/19/18 @ 14:54 by Vianca Alejandro) H/O heart artery stent History of cataract surgery History of prior ablation treatment History of transurethral resection of prostate Hx of cholecystectomy - Family History Family History: Family History (Last Updated 02/19/18 @ 18:03 by Vianca Alejandro) Mother Heart disease Father Emphysema of lung - Social History I have reviewed the patient's Social History: Yes - Tobacco History Second Hand Smoke Exposure: No Smoking Status: Former smoker - Alcohol History How Often Do You Have a Drink Containing Alcohol: Unable to Obtain (History of daily alcohol consumption/vodka) - Substance Use History Substance History: No History of Abuse - Travel History Recent Travel in the [place] Within the Last 8 Weeks: No Recent Travel Out of the Country Within the Last 8 Weeks: No - Immunization History Tetanus Immunization: <5 Years Medications and Allergies Active Medications: Active Medications Al Hydroxide/Mg Hydroxide (Milk Of Madi Liq) 30 ml PO Q12H PRN PRN Reason: Mild Constipation Albuterol (Duoneb Neb (Prn)) 1 ampul NEB Q2HR NEB PRN PRN Reason: WHEEZING Bisacodyl (Dulcolax Supp) 10 mg RECTAL DAILY PRN PRN Reason: SEVERE CONSITIPATION Chlorhexidine Gluconate (Chlorhexidine 2% Cloth) 3 pack TOPICAL DAILY@0400 EVARISTO Stop: 02/25/18 03:59 Chlorhexidine Gluconate (Chlorhexidine 2% Cloth) 3 pack TOPICAL DAILY@0400 PRN PRN Reason: Extra cloth needed Stop: 02/25/18 03:59 Famotidine (Pepcid Pf Inj) 20 mg IV.PUSH Q12HR EVARISTO Nicardipine HCl 25 mg/ Sodium (Chloride) 250 mls @ 50 mls/hr IV.CONT TITRATE PRN; Protocol PRN Reason: Per Protocol Last Titration: 02/19/18 12:25 Dose: 5 mg/hr, 50 mls/hr Sodium Chloride (Ns Inj) 1,000 mls @ 84 mls/hr IV.CONT .[id number] EVARISTO Sodium Chloride (Ns Inj) 250 mls @ 15 mls/hr IV.SIG ONCE EVARISTO Stop: 02/20/18 06:39 Ondansetron HCl (Zofran Inj) 4 mg IV.PUSH Q6H PRN PRN Reason: NAUSEA OR VOMITING Sennosides (Senokot) 17.2 mg PO Q12H PRN PRN Reason: Moderate Constipation Sodium Chloride (Ns Flush) 2 ml IV.FLUSH BID EVARISTO Sodium Chloride (Ns Flush) 2 ml IV.FLUSH PRN PRN PRN Reason: FLUSH AFTER USING IV ACCESS Allergies Allergy/AdvReac Type Severity Reaction Status Date / Time No Known Allergies Allergy Uncoded 04/25/13 03:26 Home Medications Medication Instructions Recorded Confirmed Type aspirin 81 mg PO DAILY 01/21/18 02/19/18 History carbidopa-levodopa 1 tab PO TID 01/21/18 02/19/18 History clonazepam 0.5 mg PO HS PRN 01/21/18 02/19/18 History glycopyrrolate 2 tab PO BID 01/21/18 02/19/18 History lisinopril 10 mg PO BID 01/21/18 02/19/18 History lovastatin 40 mg PO DAILY 01/21/18 02/19/18 History memantine 10 mg PO DAILY 01/21/18 02/19/18 History metoprolol tartrate 25 mg PO BID 01/21/18 02/19/18 History omeprazole 20 mg PO DAILY 01/21/18 02/19/18 History quetiapine 25 mg PO HS 01/21/18 02/19/18 History sertraline 100 mg PO DAILY 01/21/18 02/19/18 History tamsulosin 0.4 mg PO DAILY 01/21/18 02/19/18 History warfarin See Label Instructions .ROUTE 01/21/18 02/19/18 History .COMPLEX warfarin See Label Instructions .ROUTE 01/21/18 02/19/18 History .COMPLEX Advance Directives Living Will: Yes Healthcare Surrogate: Yes Health Care Surrogate Name and Number: HCS: Mine Suarez () Alternate : Treutlen Robert (son) Power of Press Cutter: Yes (Spouse stated that patient has DPOA-will bring in copies ) Today's verbally stated goals: Patient is aphasic. . Family/friends goals: Spouse will most likely forego aggressive treatment and transition patient to comfort care through hospice. She would like to further discuss hospice option with patient's children. . Ethical and Legal Issues: None identified at this time. . Physical Exam Vital Signs: Vital Signs - 24 hr 02/19/18 10:56 02/19/18 11:03 02/19/18 12:00 Temperature 98.2 F Pulse Rate 62 62 Respiratory Rate 18 16 Blood Pressure 184/84 H 175/77 H Pulse Oximetry 96 96 02/19/18 12:01 02/19/18 12:09 02/19/18 13:00 Temperature Pulse Rate 63 67 Respiratory Rate 16 19 19 Blood Pressure 129/58 L 123/61 Pulse Oximetry 97 97 02/19/18 13:30 Temperature Pulse Rate 65 Respiratory Rate 16 Blood Pressure 129/61 Pulse Oximetry 96 I&O: Intake & Output 02/17/18 02/18/18 02/19/18 02/20/18 06:59 06:59 06:59 06:59 Intake Total 100 / 100 Balance 100 / 100 Weight 83.915 kg Physical Exam: CONSTITUTIONAL/GENERAL: This is an adequately nourished patient, in no apparent distress. TUBES/LINES/DRAINS: SKIN: No jaundice, rashes, or lesions. Ecchymoses on upper extremities. No wounds seen anteriorly. Skin temperature appropriate. Not diaphoretic. HEAD: Atraumatic. Normocephalic. EYES: Pupils equal and round and reactive. Extraocular motions intact. No scleral icterus. No injection or drainage. Fundi not examined. ENT: Hearing grossly normal. Nose without bleeding or purulent drainage. Throat without visible erythema, exudates, masses, or lesions. NECK: Trachea midline. Supple, nontender. No palpable thyroid enlargement or nodularity. CARDIOVASCULAR: Regular rate and rhythm without murmurs, gallops, or rubs. No JVD. Peripheral pulses symmetric. RESPIRATORY/CHEST: Symmetric, unlabored respirations. Clear to auscultation. Breath sounds equal bilaterally. No wheezes, rales, or rhonchi. GASTROINTESTINAL: Abdomen soft, non-tender, nondistended. No hepato-splenomegaly , or palpable masses. No guarding. Bowel sounds present. GENITOURINARY: Without palpable bladder distension. Shay catheter in place. MUSCULOSKELETAL: Extremities without clubbing, cyanosis, or edema. No joint tenderness or effusion noted. No calf tenderness. No mottling or clubbing. LYMPHATICS: No palpable cervical or supraclavicular adenopathy. NEUROLOGICAL: Awake and alert. Motor and sensory grossly within normal limits. Follows commands. Cognitively sharp. Moves all extremities. PSYCHIATRIC: No obvious anxiety/depression. no apparent hallucinations or other psychotic thought process. Diagnostic Tests Laboratory: Laboratory Results - last 72 hr 02/19/18 02/19/18 02/19/18 11:10 11:10 11:10 WBC 8.9 RBC 4.19 L Hgb 13.3 Hct 39.8 MCV 95.0 MCH 31.6 MCHC 33.3 RDW 14.0 Plt Count 122 L MPV 8.5 Neut % (Auto) 74.5 H Lymph % (Auto) 17.6 [place] % (Auto) 7.0 Eos % (Auto) 0.6 Baso % (Auto) 0.3 Neut # (Auto) 6.6 Lymph # (Auto) 1.6 [place] # (Auto) 0.6 Eos # (Auto) 0.1 Baso # (Auto) 0.0 WBC Differential . Differential Comment Auto diff final PT 25.0 H INR 2.5 APTT 32.4 H Sodium 143 Potassium 3.5 Chloride 108 H Carbon Dioxide 27.8 Anion Gap 7 BUN 13 Creatinine 0.90 Estimated GFR 80 L Random Glucose 112 H Calcium 7.7 L Magnesium 2.2 Total Bilirubin 0.8 AST 15 ALT 9 L Alkaline Phosphatase 97 Total Protein 6.5 Albumin 3.4 Urine Color Urine Clarity Urine pH Ur Specific [place] Urine Protein Urine Glucose (UA) Urine Ketones Urine Occult Blood Urine Nitrate Urine Bilirubin Urine Urobilinogen Ur Leukocyte Esterase Urine RBC Urine WBC Urine Bacteria Urine Mucus Micro UA Comment Ur Microscopic Review Urine Culture Comments 02/19/18 12:55 WBC RBC Hgb Hct MCV MCH MCHC RDW Plt Count MPV Neut % (Auto) Lymph % (Auto) [place] % (Auto) Eos % (Auto) Baso % (Auto) Neut # (Auto) Lymph # (Auto) [place] # (Auto) Eos # (Auto) Baso # (Auto) WBC Differential Differential Comment PT INR APTT Sodium Potassium Chloride Carbon Dioxide Anion Gap BUN Creatinine Estimated GFR Random Glucose Calcium Magnesium Total Bilirubin AST ALT Alkaline Phosphatase Total Protein Albumin Urine Color Yellow Urine Clarity Clear Urine pH 7.0 Ur Specific [place] 1.012 Urine Protein Negative Urine Glucose (UA) Negative Urine Ketones Negative Urine Occult Blood Negative Urine Nitrate Negative Urine Bilirubin Negative Urine Urobilinogen 2.0 H Ur Leukocyte Esterase Negative Urine RBC 2 Urine WBC 1 Urine Bacteria Rare H Urine Mucus Few H Micro UA Comment Cath-culture ind Ur Microscopic Review Not Reportable Urine Culture Comments Cath-cult indicated Result Diagrams: 02/19/18 11:10 02/19/18 11:10 Imaging: Head CT 02/19/18 11:01 CONCLUSION: 1. 2 focal areas of hemorrhage in the left cerebral hemisphere in the left frontal and left temporal parietal regions with surrounding mass effect. 2. Underlying atrophy. 3. Sinus disease. This information was relayed by telephone to . Patient/Family Conference Family Conference Location: Bedside, Consult Room Issues Discussed: * Palliative care role, purpose, approach * Additional medical, psychosocial, and spiritual history * Patients general health, functional status, and cognitive changes in the months leading up to the current hospitalization * Patient/family understanding of the current medical problems * Patient/family understanding of prognosis * Patients goals of care as best understood from advance directives and/or conversations and/or values * Current medical treatment options and benefits/burdens of those options * Likely scenarios comparing ongoing aggressive care with a transition to comfort measures only * Questions answered to the best of my ability * Introduced to hospice philosophy and benefits. * Palliative care contact information provided Assessment and Plan - Disease Oriented Problem List (1) Lewy body Parkinson disease (2) Dementia (3) Atrial fibrillation (4) Chronic anticoagulation (5) Intracranial hemorrhage - Symptom Scale (1) Altered mental status 0-10 Scale: Unable to quantify Comment: Patient has history of Lewy body packings on/dementia. Patient came in with worsening confusion. CT head revealing left frontal and parietal intraparenchymal hemorrhages. (2) At risk for pain 0-10 Scale: 2 (3) Debility Comment: Progressive. Pertinent Non-Medical Issues: Psychosocial: Patient is . Spiritual: Legal: Ethical issues impacting care: Important Contacts: Spouse-Mine Suarez-[phone] Prognosis: Mr. Suarez is a 87-year-old male with a past medical history significant for Lewy body Parkinson's disease/dementia, atrial fibrillation s/p ablation on Coumadin, chronic obstructive pulmonary disease, hypertension, congestive heart failure, coronary artery disease, benign prostate hypertrophy, lower back arthritis, skin cancer, gastroesophageal reflux disease and depression. Patient was brought to the emergency room by [facility] on 02/19/18 for further evaluation and treatment for altered mental status and aphasia as well as a witnessed generalized tonic-clonic seizure that lasted a few seconds by his private caregiver. CT head revealed left frontal and parietal intra- parenchymal hemorrhages. Given ongoing comorbidities, patient remains at high risk for further complications, deterioration and decline. If goals are comfort oriented patient may benefit from hospice services. . Code Status: No Code DNR Plan: PLAN: Legal decision maker: Patient recently had frontal and parietal intraparenchymal hemorrhage is and is aphasic. He also has history of Lewy body Parkinson's/dementia. According to spouse, patient has DURABLE POWER OF PREMIX CONCRETE BATCHER including healthcare and patient named her Mine Suarez as his healthcare surrogate and patient`s son Dev Suarez as the alternate healthcare surrogate. Goals: Aggressive short of no code. Patient spouse stated that she does not want patient to suffer and she understands that patient has a progressive disease and his recent hemorrhagic bleed will most likely compound to patient's deterioration. She also feels that if patient fails swallow evaluation, a nasogastric tube or PEG tube will most likely prolong his suffering though she feels that when she has to make a decision regarding that she would want to speak to patient's children first. Introduced hospice philosophy and benefits. Patient spouse interested in transitioning patient to comfort care only through hospice services. She would want to discuss with patient`s 3 children first to make sure that all family members are in agreement. She is amenable to an informative hospice consult. Hospice consult placed. [facility] DNR signed and hard copy(yellow) given to spouse, copy placed on chart and faxed to HIM. CODE STATUS: No code DNR/DNI SYMPTOMS: * Altered mental status:Patient has history of Lewy body Parkinson`s disease/ dementia. Patient came in with worsening confusion. CT head revealing left frontal and parietal intraparenchymal hemorrhages. * At risk for pain: Patient has intraparenchymal hemorrhage, currently in a bedbound status. Currently not showing signs of pain. Continue to monitor for nonverbal signs and symptoms of pain. * Debility: Patient has Lewy body Parkinson`s disease/dementia. According to patient spouse, in the past 6 months he has significantly declined to a point of needing private caregivers to constantly monitor him and assist with ADLs. With recent intraparenchymal hemorrhage patient will most likely continue to deteriorate and may not be able to benefit much from physical therapy. Patient is currently aphasic. Palliative care will continue to follow the patient during hospital course as condition evolves, to assist patient/decision-maker with understanding of their medical conditions, weighing benefits/burdens of treatment options, for clarification of goals of treatment. Additionally will assist with any symptoms of palliative concern Appreciation Thank you for the opportunity to participate in the care of Dev Suarez. Attestation Attestation: To help prompt me to consider important information that might be impacting today's encounter and assessment, information from prior notes written by myself or my colleagues may have been "brought forward" into today's note. My signature on this note, however, is an attestation that I personally performed the exam, history, and/or decision-making noted today, and, unless otherwise indicated, the interactions with patient, family, and staff as well as the review of records all occurred today. I also attest that the listed assessment and stated plan reflect my best clinical judgment today based on the combination of historical information, prior notes, and today's exam/ interactions. When time spent is documented, it refers only to time spent today by the signer, or if indicated, combined time spent today by collaborating physician/nurse practitioner.
[2018-02-19] MEDS ORDERED: Haloperidol Inj 5 MG/ML Ampul IV.PUSH PRN (16:57)
[2018-02-19] MEDS: Famotidine PF Inj 20 MG/2 ML Vial IV.PUSH SCH (21:49)
[2018-02-20] MEDS: Sod Chloride 0.9% Inj 1,000 ML IV.CONT SCH ×3 (00:58→16:29)
[2018-02-20] MEDS ORDERED: Chlorhexidine Gluconate 2% 1 Pack (2 Cloths) TOPICAL PRN (04:00)
[2018-02-20] MEDS: Chlorhexidine Gluconate 2% 1 Pack (2 Cloths) TOPICAL SCH (05:27)
[2018-02-20] MEDS: niCARdipine Inj 25 MG in Sodium Chlor 0.9% Inj 240 ML IV.CONT PRN ×2 (05:29→12:20)
[2018-02-20 06:14] LABS: Baso % (Auto) 0.2 % (0.0-2.0); Hematocrit 38.5 % (39.0-51.0); Lymph # (Auto) 1.8 th/mm3 (1.0-4.8); Lymph % (Auto) 15.3 % (9.0-44.0); Mean Corpuscular HGB Conc 33.8 % (32.0-36.0); Mean Corpuscular Hemoglobin 31.5 pg (27.0-34.0); Mean Platelet Volume 8.9 fL (7.0-11.0); Mono % (Auto) 8.3 % (0.0-8.0); Neut # (Auto) 8.7 th/mm3 (1.8-7.7); Neut % (Auto) 76.2 % (16.0-70.0); Platelet Count 131 th/mm3 (150-450); Red Blood Count 4.15 mil/mm3 (4.50-5.90); Red Cell Distribution Width 13.8 % (11.6-17.2); White Blood Count 11.5 th/mm3 (4.0-11.0)
[2018-02-20 06:27] LABS: INR 1.1 Ratio; Prothrombin Time 11.4 sec (9.8-11.6)
[2018-02-20 06:41] LABS: Albumin 3.5 g/dL (3.4-5.0); Anion Gap 9 meq/L (5-15); Blood Urea Nitrogen 15 mg/dL (7-18); Calcium 7.9 mg/dL (8.5-10.1); Carbon Dioxide 22.8 meq/L (21.0-32.0); Chloride 110 meq/L (98-107); Glomerular Filtration Rate Greater Than 89 mL/min (>89); Glucose,Random 95 mg/dL (74-106); Potassium 3.3 meq/L (3.5-5.1); Sodium 142 meq/L (136-145)
[2018-02-20 06:43] LABS: Aspartate Aminotransferase 15 U/L (15-37)
[2018-02-20 06:46] LABS: Alanine Aminotransferase 15 U/L (12-78); Alkaline Phosphatase 102 U/L (45-117); Total Protein 6.4 g/dL (6.4-8.2)
[2018-02-20] MEDS: Famotidine PF Inj 20 MG/2 ML Vial IV.PUSH SCH (08:27)
--- NOTE | 2018-02-20 13:12 | ECG ---
Date Performed: 02/19/2018 Time Performed: 12:47:12 PTAGE: 87 years EKG: Sinus rhythm LEFT VENTRICULAR HYPERTROPHY AND ST-T CHANGE ABNORMAL ECG PREVIOUS TRACING : 10/20/2015 06.08 Compared to previous tracing, rate has slowed with persiste nt T-wave abnormalities but ST depression is improved. DOCTOR: Lawrence Mosqueda Interpretating Date/Time 02/20/2018 13:09:58
--- NOTE | 2018-02-20 13:55 | P.PNCC ---
Subjective Subjective Remarks/Hospital Course: 02/19: 87-year-old male with a medical history significant for Lewy body dementia/Parkinson's, A. fib on Coumadin who reportedly developed worsening neurologic status since last night and this morning could not speak and could not feed himself and developed a loss of speech with subsequent question of witnessed seizure by his caregiver while in a wheelchair. He never fell and hit his head per family. Patient was brought to the ER and a head CT revealed 2 areas of intraparenchymal hemorrhage in the left cerebral hemisphere. Patient was evaluated by neurology Dr. Warren who did not feel patient needed any neurosurgical intervention. He was also hypertensive on arrival and was started on a Cardene drip. Patient was accepted for admission by critical care medicine service. When I evaluated the patient in the ER he was laying in the ER stretcher appeared comfortable in no acute distress. He was actually following commands moving both sides of the slightly less on the right. He was nonverbal and could not speak. History was obtained by reviewing records and discussion with the ER physician, neurosurgery as well as patient's and caregiver at bedside. Patient had been started on a nicardipine infusion for hypertension. Patient's does not want aggressive measures including intubation or CPR and wishes to keep him as a DNR status however does want to continue medical care including managing blood pressure and admitting to the ICU at this time. 02/20: Lengthy discussion today with the patient's family. The son specifically had several questions about the prognosis nature of the permanent injury. I made it clear to him that this individual would not speak nor probably receive verbal language again following this injury. Further, the patient appears frustrated and uncomfortable. We talked extensively about the patient's wishes and likely quality of life following this hemorrhagic stroke. The family has decided to pursue the hospice care center as a transition. The family appears to fully understand the severity of his neurologic injury and the prognosis despite aggressive care. Objective Vital Signs / I&O: Vital Signs 02/19/18 18:12 02/19/18 18:15 02/19/18 18:16 Temperature Pulse Rate 77 75 73 Respiratory Rate 18 19 17 Blood Pressure 197/95 H Pulse Oximetry 02/19/18 18:30 02/19/18 18:45 02/19/18 18:56 Temperature Pulse Rate 70 75 77 Respiratory Rate 35 H 34 H 30 H Blood Pressure 143/60 H Pulse Oximetry 98 98 98 02/19/18 19:00 02/19/18 19:15 02/19/18 19:30 Temperature Pulse Rate 73 77 74 Respiratory Rate 23 32 H 32 H Blood Pressure Pulse Oximetry 99 99 98 02/19/18 19:45 02/19/18 20:00 02/19/18 20:15 Temperature 99.4 F Pulse Rate 77 75 75 Respiratory Rate 42 H 38 H 25 H Blood Pressure Pulse Oximetry 98 98 97 02/19/18 20:30 02/19/18 20:45 02/19/18 21:00 Temperature Pulse Rate 74 73 75 Respiratory Rate 23 34 H 28 H Blood Pressure Pulse Oximetry 98 98 97 02/19/18 21:15 02/19/18 21:30 02/19/18 21:45 Temperature Pulse Rate 76 74 76 Respiratory Rate 29 H 28 H 33 H Blood Pressure Pulse Oximetry 97 96 97 02/19/18 21:49 02/19/18 22:00 02/19/18 22:15 Temperature Pulse Rate 76 78 78 Respiratory Rate 37 H 32 H 28 H Blood Pressure 137/65 141/76 H 143/63 H Pulse Oximetry 97 96 96 02/19/18 22:30 02/19/18 22:45 02/19/18 23:00 Temperature 99 F Pulse Rate 78 76 76 Respiratory Rate 32 H 21 32 H Blood Pressure 146/63 H 130/60 132/63 Pulse Oximetry 96 96 96 02/19/18 23:15 02/19/18 23:30 02/19/18 23:45 Temperature Pulse Rate 78 78 80 Respiratory Rate 28 H 27 H 26 H Blood Pressure 140/65 139/64 140/64 Pulse Oximetry 96 96 96 02/20/18 00:00 02/20/18 00:15 02/20/18 00:30 Temperature Pulse Rate 76 71 67 Respiratory Rate 36 H 16 32 H Blood Pressure 125/60 113/56 L 121/58 L Pulse Oximetry 96 95 96 02/20/18 00:45 02/20/18 01:00 02/20/18 01:15 Temperature Pulse Rate 67 68 68 Respiratory Rate 30 H 34 H 44 H Blood Pressure 116/55 L 116/58 L 120/60 Pulse Oximetry 96 96 96 02/20/18 01:30 02/20/18 01:45 02/20/18 02:00 Temperature Pulse Rate 80 81 81 Respiratory Rate 33 H 33 H 28 H Blood Pressure 158/84 H 148/63 H Pulse Oximetry 96 97 97 02/20/18 02:02 02/20/18 02:15 02/20/18 02:30 Temperature Pulse Rate 81 79 75 Respiratory Rate 35 H 32 H 23 Blood Pressure 145/62 H 165/63 H 123/60 Pulse Oximetry 97 97 96 02/20/18 02:45 02/20/18 03:00 02/20/18 03:15 Temperature Pulse Rate 69 70 70 Respiratory Rate 28 H 47 H 17 Blood Pressure 119/58 L 117/58 L 127/55 L Pulse Oximetry 96 96 97 02/20/18 03:30 02/20/18 03:45 02/20/18 04:00 Temperature Pulse Rate 72 69 74 Respiratory Rate 18 27 H 21 Blood Pressure 125/58 L 119/59 L 122/57 L Pulse Oximetry 97 96 97 02/20/18 04:15 02/20/18 04:30 02/20/18 04:45 Temperature Pulse Rate 80 75 78 Respiratory Rate 21 15 21 Blood Pressure 145/63 H 125/60 129/72 Pulse Oximetry 97 97 97 02/20/18 05:00 02/20/18 05:15 02/20/18 05:30 Temperature Pulse Rate 80 82 73 Respiratory Rate 21 25 H 16 Blood Pressure 128/64 134/61 114/56 L Pulse Oximetry 97 97 96 02/20/18 05:45 02/20/18 06:00 02/20/18 06:15 Temperature Pulse Rate 69 70 70 Respiratory Rate 13 14 15 Blood Pressure 114/55 L 113/55 L 120/56 L Pulse Oximetry 96 97 97 02/20/18 06:30 02/20/18 06:45 02/20/18 07:00 Temperature Pulse Rate 71 70 84 Respiratory Rate 14 14 25 H Blood Pressure 119/59 L 121/58 L 135/64 Pulse Oximetry 98 97 98 02/20/18 07:15 02/20/18 07:30 02/20/18 07:45 Temperature Pulse Rate 86 84 93 H Respiratory Rate 25 H 17 28 H Blood Pressure 144/62 H 134/61 144/65 H Pulse Oximetry 98 98 97 02/20/18 08:00 02/20/18 08:03 02/20/18 08:15 Temperature 97.8 F Pulse Rate 87 89 Respiratory Rate 22 19 Blood Pressure 128/64 136/74 Pulse Oximetry 97 98 98 02/20/18 08:30 02/20/18 08:45 02/20/18 09:00 Temperature Pulse Rate 90 93 H 92 H Respiratory Rate 24 40 H 30 H Blood Pressure 141/70 H 144/67 H 138/64 Pulse Oximetry 98 98 98 02/20/18 09:15 02/20/18 09:30 02/20/18 09:45 Temperature Pulse Rate 90 86 92 H Respiratory Rate 20 17 27 H Blood Pressure 131/60 131/63 162/71 H Pulse Oximetry 98 98 98 02/20/18 10:00 Temperature Pulse Rate 89 Respiratory Rate 20 Blood Pressure 143/65 H Pulse Oximetry 98 Intake & Output 02/19/18 02/20/18 02/20/18 18:59 06:59 18:59 Intake Total 401 / 401 1500 / 1500 250 / 250 Output Total 900 / 900 500 / 500 Balance -499 / -499 1000 / 1000 250 / 250 Weight 83.915 kg 74 kg Intake: IV 401 / 401 1500 / 1500 250 / 250 NS Inj 1,000 ML @ 84 mls/hr IV. 1000 / 1000 CONT .[id number] [facility] Rx#:[id number] Cardene Inj 25 MG In NS Inj 240 250 / 250 500 / 500 250 / 250 ML @ 5 MG/HR 50 mls/hr IV.CONT TITRATE PRN Rx#:[id number] Vitamin K Inj 10 MG In NS Inj 51 / 51 50 ML @ 102 mls/hr IV.SIG ONCE ONE Rx#:[id number] Keppra 1000 mg/100 mL Premix 100 / 100 100 ML @ 400 mls/hr IV.SIG ONCE ONE Rx#:[id number] Output: Urine Amount (Catheter) 900 / 900 500 / 500 Indwelling Urethral Catheter 900 / 900 500 / 500 Result Diagrams: 02/20/18 05:29 02/20/18 05:29 Objective Remarks: Physical examination HEENT: Atraumatic, neck supple, airway widely patent. Neuro: TIFFANY, aphasic, weak right arm. Clearly frustrated and agitated. Unable to understand language. Chest/pulmonary: Clear, acceptable air movement bilaterally. No adventitious sounds. Cardiovascular: S1-S2 regular no gallop or murmur, no JVD. GI/abdomen: Soft, nontender, nondistended, bowel sounds active. Extremities: Warm bilaterally, no edema, well perfused. Assessment and Plan - Assessment and Plan Plan: 87-year-old male with: Intracerebral hemorrhage Hypertensive emergency Jay body dementia Parkinson's disease Atrial fibrillation Coagulopathy secondary to Coumadin Plan: Neuro: Devastating neurologic stroke in a bad area, communication largely wiped out. Blood pressure control with Cardene GTT, convert to p.o. following swallow evaluation.. Consult neurology Dr. Keys Cardiovascular: Maintain systolic blood pressure less than 140, hold Coumadin. Status post 2 units FFP. Pulmonary: Supplemental O2 as needed. Currently protecting airway. GI/liver: N.p.o. for now. Liquids after swallow evaluation if passed. Renal/: IV hydration, follow BUN and creatinine. ID: No indication for antibiotics at this time. Heme: Follow CBC and coags. Status post vitamin K administration. Endocrine: Watch for hypoglycemia, SSI for glycemic control if needed Prophylaxis: Pepcid/SCDs. Chemical DVT prophylaxis contraindicated because of recent brain bleed. Family requests DNR status Overall impression: The patient is critically ill having sustained a hemorrhagic stroke involving his dominant hemisphere. I held a meeting today with the family during which we discussed the prognosis and likely outcome for continued aggressive care. All questions were answered and they have elected for hospice treatment. Critical care time 45 minutes.
[2018-02-20] MEDS ORDERED: Morphine Inj 4 MG/ML Vial IV.PUSH PRN (15:44)
[2018-02-20] MEDS ORDERED: Morphine Sulfate Oral Liq 10 MG/0.5 ML Syringe PO PRN (15:46)
[2018-02-20] MEDS ORDERED: Hyoscyamine Inj 0.5 MG/ML Ampul IV.PUSH PRN (15:47)
--- NOTE | 2018-02-20 15:55 | P.DS ---
Date of admission: 02/19/18 12:14 Primary care physician: Regi Ng MD Attending physician on discharge: Simon Pate Brief History from admission: 87-year-old male with a medical history significant for Lewy body dementia/ Parkinson's, A. fib on Coumadin who reportedly developed worsening neurologic status since last night and this morning could not speak and could not feed himself and developed a loss of speech with subsequent question of witnessed seizure by his caregiver while in a wheelchair. He never fell and hit his head per family. Patient was brought to the ER and a head CT revealed 2 areas of intraparenchymal hemorrhage in the left cerebral hemisphere. Patient was evaluated by neurology Dr. Warren who did not feel patient needed any neurosurgical intervention. He was also hypertensive on arrival and was started on a Cardene drip. Patient was accepted for admission by critical care medicine service. When I evaluated the patient in the ER he was laying in the ER stretcher appeared comfortable in no acute distress. He was actually following commands moving both sides of the slightly less on the right. He was nonverbal and could not speak. History was obtained by reviewing records and discussion with the ER physician, neurosurgery as well as patient's and caregiver at bedside. Patient had been started on a nicardipine infusion for hypertension. Patient's does not want aggressive measures including intubation or CPR and wishes to keep him as a DNR status however does want to continue medical care including managing blood pressure and admitting to the ICU at this time. Patient update on day of discharge: After lengthy discussion family has elected to transition to hospice. DS: Diagnosis - Discharge Diagnosis (1) Encephalopathy acute Status: Acute (2) Intracranial hemorrhage Status: Acute (3) Lewy body Parkinson disease Status: Acute (4) Atrial fibrillation Status: Acute (5) Chronic anticoagulation Status: Acute DS: Summary Hospital Course: 02/19: 87-year-old male with a medical history significant for Lewy body dementia/Parkinson's, A. fib on Coumadin who reportedly developed worsening neurologic status since last night and this morning could not speak and could not feed himself and developed a loss of speech with subsequent question of witnessed seizure by his caregiver while in a wheelchair. He never fell and hit his head per family. Patient was brought to the ER and a head CT revealed 2 areas of intraparenchymal hemorrhage in the left cerebral hemisphere. Patient was evaluated by neurology Dr. Warren who did not feel patient needed any neurosurgical intervention. He was also hypertensive on arrival and was started on a Cardene drip. Patient was accepted for admission by critical care medicine service. When I evaluated the patient in the ER he was laying in the ER stretcher appeared comfortable in no acute distress. He was actually following commands moving both sides of the slightly less on the right. He was nonverbal and could not speak. History was obtained by reviewing records and discussion with the ER physician, neurosurgery as well as patient's and caregiver at bedside. Patient had been started on a nicardipine infusion for hypertension. Patient's does not want aggressive measures including intubation or CPR and wishes to keep him as a DNR status however does want to continue medical care including managing blood pressure and admitting to the ICU at this time. 02/20: Lengthy discussion today with the patient's family. The son specifically had several questions about the prognosis nature of the permanent injury. I made it clear to him that this individual would not speak nor probably receive verbal language again following this injury. Further, the patient appears frustrated and uncomfortable. We talked extensively about the patient's wishes and likely quality of life following this hemorrhagic stroke. The family has decided to pursue the hospice care center as a transition. The family appears to fully understand the severity of his neurologic injury and the prognosis despite aggressive care. - Time Spent with Patient Total time spent providing and/or coordinating discharge services: Greater than 30 minutes Exam Vital signs: Vital Signs 02/19/18 18:12 02/19/18 18:15 02/19/18 18:16 Temperature Pulse Rate 77 75 73 Respiratory Rate 18 19 17 Blood Pressure 197/95 H Pulse Oximetry 02/19/18 18:30 02/19/18 18:45 02/19/18 18:56 Temperature Pulse Rate 70 75 77 Respiratory Rate 35 H 34 H 30 H Blood Pressure 143/60 H Pulse Oximetry 98 98 98 02/19/18 19:00 02/19/18 19:15 02/19/18 19:30 Temperature Pulse Rate 73 77 74 Respiratory Rate 23 32 H 32 H Blood Pressure Pulse Oximetry 99 99 98 02/19/18 19:45 02/19/18 20:00 02/19/18 20:15 Temperature 99.4 F Pulse Rate 77 75 75 Respiratory Rate 42 H 38 H 25 H Blood Pressure Pulse Oximetry 98 98 97 02/19/18 20:30 02/19/18 20:45 02/19/18 21:00 Temperature Pulse Rate 74 73 75 Respiratory Rate 23 34 H 28 H Blood Pressure Pulse Oximetry 98 98 97 02/19/18 21:15 02/19/18 21:30 02/19/18 21:45 Temperature Pulse Rate 76 74 76 Respiratory Rate 29 H 28 H 33 H Blood Pressure Pulse Oximetry 97 96 97 02/19/18 21:49 02/19/18 22:00 02/19/18 22:15 Temperature Pulse Rate 76 78 78 Respiratory Rate 37 H 32 H 28 H Blood Pressure 137/65 141/76 H 143/63 H Pulse Oximetry 97 96 96 02/19/18 22:30 02/19/18 22:45 02/19/18 23:00 Temperature 99 F Pulse Rate 78 76 76 Respiratory Rate 32 H 21 32 H Blood Pressure 146/63 H 130/60 132/63 Pulse Oximetry 96 96 96 02/19/18 23:15 02/19/18 23:30 02/19/18 23:45 Temperature Pulse Rate 78 78 80 Respiratory Rate 28 H 27 H 26 H Blood Pressure 140/65 139/64 140/64 Pulse Oximetry 96 96 96 02/20/18 00:00 02/20/18 00:15 02/20/18 00:30 Temperature Pulse Rate 76 71 67 Respiratory Rate 36 H 16 32 H Blood Pressure 125/60 113/56 L 121/58 L Pulse Oximetry 96 95 96 02/20/18 00:45 02/20/18 01:00 02/20/18 01:15 Temperature Pulse Rate 67 68 68 Respiratory Rate 30 H 34 H 44 H Blood Pressure 116/55 L 116/58 L 120/60 Pulse Oximetry 96 96 96 02/20/18 01:30 02/20/18 01:45 02/20/18 02:00 Temperature Pulse Rate 80 81 81 Respiratory Rate 33 H 33 H 28 H Blood Pressure 158/84 H 148/63 H Pulse Oximetry 96 97 97 02/20/18 02:02 02/20/18 02:15 02/20/18 02:30 Temperature Pulse Rate 81 79 75 Respiratory Rate 35 H 32 H 23 Blood Pressure 145/62 H 165/63 H 123/60 Pulse Oximetry 97 97 96 02/20/18 02:45 12/01/18 03:00 02/20/18 03:15 Temperature Pulse Rate 69 70 70 Respiratory Rate 28 H 47 H 17 Blood Pressure 119/58 L 117/58 L 127/55 L Pulse Oximetry 96 96 97 02/20/18 03:30 02/20/18 03:45 02/20/18 04:00 Temperature Pulse Rate 72 69 74 Respiratory Rate 18 27 H 21 Blood Pressure 125/58 L 119/59 L 122/57 L Pulse Oximetry 97 96 97 02/20/18 04:15 02/20/18 04:30 02/20/18 04:45 Temperature Pulse Rate 80 75 78 Respiratory Rate 21 15 21 Blood Pressure 145/63 H 125/60 129/72 Pulse Oximetry 97 97 97 02/20/18 05:00 02/20/18 05:15 02/20/18 05:30 Temperature Pulse Rate 80 82 73 Respiratory Rate 21 25 H 16 Blood Pressure 128/64 134/61 114/56 L Pulse Oximetry 97 97 96 02/20/18 05:45 02/20/18 06:00 02/20/18 06:15 Temperature Pulse Rate 69 70 70 Respiratory Rate 13 14 15 Blood Pressure 114/55 L 113/55 L 120/56 L Pulse Oximetry 96 97 97 02/20/18 06:30 02/20/18 06:45 02/20/18 07:00 Temperature Pulse Rate 71 70 84 Respiratory Rate 14 14 25 H Blood Pressure 119/59 L 121/58 L 135/64 Pulse Oximetry 98 97 98 02/20/18 07:15 02/20/18 07:30 02/20/18 07:45 Temperature Pulse Rate 86 84 93 H Respiratory Rate 25 H 17 28 H Blood Pressure 144/62 H 134/61 144/65 H Pulse Oximetry 98 98 97 02/20/18 08:00 02/20/18 08:03 02/20/18 08:15 Temperature 97.8 F Pulse Rate 87 89 Respiratory Rate 22 19 Blood Pressure 128/64 136/74 Pulse Oximetry 97 98 98 02/20/18 08:30 02/20/18 08:45 02/20/18 09:00 Temperature Pulse Rate 90 93 H 92 H Respiratory Rate 24 40 H 30 H Blood Pressure 141/70 H 144/67 H 138/64 Pulse Oximetry 98 98 98 02/20/18 09:15 02/20/18 09:30 02/20/18 09:45 Temperature Pulse Rate 90 86 92 H Respiratory Rate 20 17 27 H Blood Pressure 131/60 131/63 162/71 H Pulse Oximetry 98 98 98 02/20/18 10:00 02/20/18 10:15 02/20/18 10:30 Temperature Pulse Rate 89 89 90 Respiratory Rate 20 20 18 Blood Pressure 143/65 H 140/64 137/60 Pulse Oximetry 98 97 98 02/20/18 10:45 02/20/18 11:00 02/20/18 11:15 Temperature Pulse Rate 87 89 79 Respiratory Rate 18 20 16 Blood Pressure 139/65 147/67 H 136/63 Pulse Oximetry 98 97 98 02/20/18 11:30 02/20/18 11:45 02/20/18 12:00 Temperature 98.5 F Pulse Rate 76 74 74 Respiratory Rate 15 12 14 Blood Pressure 135/63 135/62 135/63 Pulse Oximetry 97 97 97 02/20/18 12:15 02/20/18 12:30 02/20/18 12:45 Temperature Pulse Rate 80 84 78 Respiratory Rate 40 H 30 H 22 Blood Pressure 131/60 135/62 129/62 Pulse Oximetry 98 99 99 02/20/18 13:00 02/20/18 13:31 02/20/18 14:00 Temperature Pulse Rate 87 91 H 89 Respiratory Rate 36 H 33 H 31 H Blood Pressure 146/67 H 147/62 H Pulse Oximetry 99 98 97 02/20/18 15:00 02/20/18 15:28 Temperature Pulse Rate 93 H 82 Respiratory Rate 36 H 17 Blood Pressure 120/58 L Pulse Oximetry 98 97 Intake & Output 02/19/18 02/20/18 02/20/18 18:59 06:59 18:59 Intake Total 401 / 401 1500 / 1500 250 / 250 Output Total 900 / 900 500 / 500 Balance -499 / -499 1000 / 1000 250 / 250 Weight 83.915 kg 74 kg Intake: IV 401 / 401 1500 / 1500 250 / 250 NS Inj 1,000 ML @ 84 mls/hr IV. 1000 / 1000 CONT .[id number] [facility] Rx#:[id number] Cardene Inj 25 MG In NS Inj 240 250 / 250 500 / 500 250 / 250 ML @ 5 MG/HR 50 mls/hr IV.CONT TITRATE PRN Rx#:[id number] Vitamin K Inj 10 MG In NS Inj 51 / 51 50 ML @ 102 mls/hr IV.SIG ONCE ONE Rx#:[id number] Keppra 1000 mg/100 mL Premix 100 / 100 100 ML @ 400 mls/hr IV.SIG ONCE ONE Rx#:[id number] Output: Urine Amount (Catheter) 900 / 900 500 / 500 Indwelling Urethral Catheter 900 / 900 500 / 500 Narrative: General: Agitated elderly man Neuro: Protect airway. Lungs: Breathing comfortably Results Procedures completed during hospitalization: CT head MRI head Labs on day of discharge: Labs from last 24 hours 02/20/18 02/20/18 02/20/18 05:29 05:29 05:29 WBC 11.5 H RBC 4.15 L Hgb 13.0 Hct 38.5 L MCV 93.0 MCH 31.5 MCHC 33.8 RDW 13.8 Plt Count 131 L MPV 8.9 Neut % (Auto) 76.2 H Lymph % (Auto) 15.3 [place] % (Auto) 8.3 H Eos % (Auto) 0.0 Baso % (Auto) 0.2 Neut # (Auto) 8.7 H Lymph # (Auto) 1.8 [place] # (Auto) 1.0 H Eos # (Auto) 0.0 Baso # (Auto) 0.0 WBC Differential . Differential Comment Auto diff final PT 11.4 D INR 1.1 Sodium 142 Potassium 3.3 L Chloride 110 H Carbon Dioxide 22.8 Anion Gap 9 BUN 15 Creatinine 0.78 Estimated GFR Greater than 89 Random Glucose 95 Calcium 7.9 L Total Bilirubin 1.5 H AST 15 ALT 15 Alkaline Phosphatase 102 Total Protein 6.4 Albumin 3.5 Nasal Screen MRSA (PCR) Blood Bank Comment 02/19/18 02/19/18 14:44 13:54 WBC RBC Hgb Hct MCV MCH MCHC RDW Plt Count MPV Neut % (Auto) Lymph % (Auto) [place] % (Auto) Eos % (Auto) Baso % (Auto) Neut # (Auto) Lymph # (Auto) [place] # (Auto) Eos # (Auto) Baso # (Auto) WBC Differential Differential Comment PT INR Sodium Potassium Chloride Carbon Dioxide Anion Gap BUN Creatinine Estimated GFR Random Glucose Calcium Total Bilirubin AST ALT Alkaline Phosphatase Total Protein Albumin Nasal Screen MRSA (PCR) Not detected Blood Bank Comment Preliminary micro results at discharge 02/19/18 12:55 Urine Culture - Preliminary Catheterized Urine No growth in 24 hours - Impressions ITS Impressions Head CT 02/19/18 11:01 CONCLUSION: 1. 2 focal areas of hemorrhage in the left cerebral hemisphere in the left frontal and left temporal parietal regions with surrounding mass effect. 2. Underlying atrophy. 3. Sinus disease. This information was relayed by telephone to . Discharge Plan - Discharge Disposition Patient Disposition: 51 Hospice/Med Facility - Discharge Condition Condition: Fair - Discharge Order Discharge Orders: Discharge Order (Routine); Ordered 02/20/18 Ordered By: Simon Pate - Discharge Details Anticipated Discharge Date: 02/20/18 - Physicians Team Primary Care Provider: Regi Ng Attending Provider: J Luis Mullen Other Providers: Waleska Villeda MD ; Mayur Warren MD ; Tino Bustillos MD
[2018-02-21] MEDS: Chlorhexidine Gluconate 2% 1 Pack (2 Cloths) TOPICAL SCH (06:27)
== END 2018-02-21 13:40 | disposition hospice, inpatient (51) ==
LOC: NEPC 10:48 → NEDA 12:14 → N03 13:40
PROVIDERS: ADMIT Internal Medicine Critical Care Medicine; ATTEND Internal Medicine Critical Care Medicine